=== PATIENT | female | born 1985 | race American Indian/Alaskan Native ===

== ENCOUNTER 2017-06-05 10:53 | Emergency (ER) | payer OTHER ==
[2017-06-05 11:26] VITALS: BP 135/91
[2017-06-05] MEDS ORDERED: TORADOL IM ONE (13:26)
--- NOTE | 2017-06-05 13:30 | Emergency Department Report ---
ED Back Pain/Injury HPI - General Chief Complaint: Back Pain/Injury Stated Complaint: BACK PAIN Time Seen by Provider: 06/05/17 13:11 Source: patient Limitations: No Limitations - History of Present Illness Initial Comments: Is a 31-year-old black female presented with right sided back pain. Patient states she's had chronic back pain for 3-4 years normally sees a doctor in [facility] which is not near this hospital. Patient states that she is having spasms pain is 8 out of 10 in severity no radiation. Movement makes it worse and nothing makes it better. Patient denies any other symptoms of nausea vomiting diarrhea abdominal pain dysuria vaginal discharge or bleeding. - Related Data Allergies Allergy/AdvReac Type Severity Reaction Status Date / Time No Known Allergies Allergy Unverified 06/05/17 11:21 ED Review of Systems ROS: Stated complaint: BACK PAIN Other details as noted in HPI Constitutional: denies: chills, fever Eyes: denies: eye pain, eye discharge, vision change ENT: denies: ear pain, throat pain Respiratory: denies: cough, shortness of breath, wheezing Cardiovascular: denies: chest pain, palpitations Endocrine: no symptoms reported Gastrointestinal: denies: abdominal pain, nausea, diarrhea Genitourinary: denies: urgency, dysuria, discharge Musculoskeletal: denies: back pain, joint swelling, arthralgia Skin: denies: rash, lesions Neurological: denies: headache, weakness, paresthesias Psychiatric: denies: anxiety, depression Hematological/Lymphatic: denies: easy bleeding, easy bruising ED Past Medical Hx - Past Medical History Back pain and spasm, "Nerve damage to my back" ED Back Pain Physical Exam - Exam General: Vital signs noted. No distress. Alert and acting appropriately. Back/Abdomen: No Abdominal Tenderness, No Perithoracic Tenderness, No Perilumbar Tenderness, No Sacroiliac Tenderness, No Flank Tenderness, No Straight Leg Raise Pain Neuro: Yes Normal Sensation, Yes Normal DTR's, Yes Normal Gait, No Motor Weakness ED Course Vital Signs 06/05/17 11:22 Temperature 97.9 F Pulse Rate 86 Respiratory 20 Rate Blood Pressure 135/91 O2 Sat by Pulse 97 Oximetry ED Medical Decision Making - Medical Decision Making Patient was given an IM shot of Toradol be discharged home. Patient was very sleepy on exam and did not feel, given this patient narcotics here nor as a prescription Critical care attestation.: If time is entered above; I have spent that time in minutes in the direct care of this critically ill patient, excluding procedure time. ED Disposition Clinical Impression: Chronic back pain Qualifiers: Back pain location: low back pain Back pain laterality: right Sciatica presence : without sciatica Qualified Code(s): M54.5 - Low back pain; G89.29 - Other chronic pain; G89.29 - Other chronic pain Disposition: DC- TO HOME OR SELFCARE Is pt being admited?: No Does the pt Need Aspirin: No Condition: Stable Instructions: Chronic Back Pain (ED)
== END 2017-06-05 15:30 | disposition home or self-care (01) ==
LOC: ED 10:53
DX: M54.5 Low back pain (principal); G89.29 Other chronic pain
CPT/HCPCS: 96372; 99282; J1885